=== PATIENT | male | born 1950 | race Caucasian/White ===

== ENCOUNTER → 2019-05-13 | Outpatient (CLI) | payer MEDICARE, OTHER ==
[~2019-05-13] MED LIST: CHOL10002 PO; CLEM1.34 PO; FOLI400 PO; HYOS.125 SL; Multi-Day Vita1 EACH PO; OMEP20ER; OSTEO BI-FLEX1 EAC2 PO; TRIA50 PO; VITAMIN B122500 MCG PO
[2019-05-13 15:11] LABS: PSA, %Free 14.2 %; PSA, Free 0.864 ng/mL
== END ==
LOC: LAB SHORT 13:17 → LAB EV 13:17
PROVIDERS: Urology
DX: R97.20 Elevated prostate specific antigen [PSA] (principal)
CPT/HCPCS: 84153; 84154

== ENCOUNTER 2019-10-06 07:53 | Day surgery (SDC) | payer MEDICARE, OTHER ==
[~2019-10-06] VITALS: Ht 180.3 cm; Wt 87.2 kg
[~2019-10-06 07:53] MED LIST changes: +DYAZIDE 37.5-21 EACH PO; -OMEP20ER; +OMEP20ER PO
[2019-10-06] MEDS ORDERED: ASPI81CH (08:18)
--- NOTE | 2019-10-06 08:38 | NUR ---
10/06/19 0838 Star Hester CALL LIGHT WITHIN REACH.
== END 2019-10-06 10:21 | disposition home or self-care (01) ==
LOC: ORSCSDS 07:53
PROVIDERS: Student in an Organized Health Care Education/Training Program
PROC: 0DBH8ZX Excision of Cecum, Via Natural or Artificial Opening Endoscopic, Diagnostic (ICD-10-PCS; principal; 2019-10-06 09:00)
PROC: 0DBK8ZX Excision of Ascending Colon, Via Natural or Artificial Opening Endoscopic, Diagnostic (ICD-10-PCS; principal; 2019-10-06 09:00)
PROC: 0DBN8ZX Excision of Sigmoid Colon, Via Natural or Artificial Opening Endoscopic, Diagnostic (ICD-10-PCS; principal; 2019-10-06 09:00)
PROC: 0DBL8ZX Excision of Transverse Colon, Via Natural or Artificial Opening Endoscopic, Diagnostic (ICD-10-PCS; principal; 2019-10-06 09:00)
DX: Z12.11 Encounter for screening for malignant neoplasm of colon (principal); D12.2 Benign neoplasm of ascending colon; D12.0 Benign neoplasm of cecum; D12.3 Benign neoplasm of transverse colon; D12.5 Benign neoplasm of sigmoid colon; K64.8 Other hemorrhoids; K21.9 Gastro-esophageal reflux disease without esophagitis; Z79.899 Other long term (current) drug therapy; Z79.82 Long term (current) use of aspirin
CPT/HCPCS: 88305; J2704; J7120

== ENCOUNTER 2020-10-09 12:02 | Day surgery (SDC) | payer MEDICARE, OTHER ==
[~2020-10-09] VITALS: Ht 180.3 cm; Wt 84.6 kg
[~2020-10-09 12:02] MED LIST changes: +ASPI81CH
[2020-10-09] MEDS ORDERED: LOSA25 (12:29)
== END 2020-10-09 14:27 | disposition home or self-care (01) ==
LOC: ORSCSDS 12:02
PROVIDERS: Student in an Organized Health Care Education/Training Program
PROC: 0DBL8ZX Excision of Transverse Colon, Via Natural or Artificial Opening Endoscopic, Diagnostic (ICD-10-PCS; principal; 2020-10-09 13:15)
PROC: 0DBN8ZX Excision of Sigmoid Colon, Via Natural or Artificial Opening Endoscopic, Diagnostic (ICD-10-PCS; principal; 2020-10-09 13:15)
PROC: 0DBM8ZX Excision of Descending Colon, Via Natural or Artificial Opening Endoscopic, Diagnostic (ICD-10-PCS; principal; 2020-10-09 13:15)
DX: Z12.11 Encounter for screening for malignant neoplasm of colon (principal); Z86.010 Personal history of colon polyps; D12.5 Benign neoplasm of sigmoid colon; D12.3 Benign neoplasm of transverse colon; D12.4 Benign neoplasm of descending colon; K64.8 Other hemorrhoids; K21.9 Gastro-esophageal reflux disease without esophagitis; I10 Essential (primary) hypertension; Z79.899 Other long term (current) drug therapy
CPT/HCPCS: 88305; J2704; J7120

== ENCOUNTER 2021-10-10 10:59 | Day surgery (SDC) | payer MEDICARE ==
[~2021-10-10] VITALS: Ht 177.8 cm; Wt 88.1 kg
[~2021-10-10 10:59] MED LIST changes: +ELIQUIS2.5 MG; +LOSA25
[2021-10-10] MEDS ORDERED: ATOR10 (11:35)
== END 2021-10-10 12:45 | disposition home or self-care (01) ==
LOC: ORSCSDS 10:59
PROVIDERS: Student in an Organized Health Care Education/Training Program
PROC: 0DB68ZX Excision of Stomach, Via Natural or Artificial Opening Endoscopic, Diagnostic (ICD-10-PCS; principal; 2021-10-10 12:15)
PROC: 0DB98ZX Excision of Duodenum, Via Natural or Artificial Opening Endoscopic, Diagnostic (ICD-10-PCS; principal; 2021-10-10 12:15)
PROC: 0DB58ZX Excision of Esophagus, Via Natural or Artificial Opening Endoscopic, Diagnostic (ICD-10-PCS; principal; 2021-10-10 12:15)
DX: K21.9 Gastro-esophageal reflux disease without esophagitis (principal); K29.80 Duodenitis without bleeding; K29.70 Gastritis, unspecified, without bleeding; J45.909 Unspecified asthma, uncomplicated; I10 Essential (primary) hypertension; E78.5 Hyperlipidemia, unspecified; Z79.899 Other long term (current) drug therapy
CPT/HCPCS: 88305; 88342; J2704; J7120

== ENCOUNTER 2021-11-15 16:15 | Day surgery (SDC) | payer MEDICARE ==
[~2021-11-15 16:15] MED LIST changes: +ATOR10 PO; -LOSA25; +LOSA25 PO
[2021-11-15] MEDS ORDERED: Flonase 0.05% N16 GM (16:40)
[2021-11-15] MEDS ORDERED: PROBIOTIC1 EA13 PO (17:26)
== END 2021-11-15 17:50 | disposition home or self-care (01) ==
LOC: ATC 16:15
DX: U07.1 COVID-19 (principal); E78.5 Hyperlipidemia, unspecified; I10 Essential (primary) hypertension; Z86.718 Personal history of other venous thrombosis and embolism; Z79.899 Other long term (current) drug therapy
CPT/HCPCS: M0222

== ENCOUNTER → 2023-05-14 | Outpatient (CLI) | payer MEDICARE ==
[~2023-05-14] MED LIST changes: +Flonase 0.05% N16 GM; +PROBIOTIC1 EA13 PO
== END | disposition home or self-care (01) ==
LOC: LAB SHORT 07:50 → LAB 07:50
DX: R10.13 Epigastric pain (principal); R14.0 Abdominal distension (gaseous)
CPT/HCPCS: 87338

== ENCOUNTER 2023-10-07 08:47 | Day surgery (SDC) | payer OTHER ==
[~2023-10-07] VITALS: Ht 177.8 cm; Wt 84.4 kg
[~2023-10-07 08:47] MED LIST changes: +Atropine Sulfate 0.1 MG/ML 10ML SYR ONE; +Glycopyrrolate 0.2 MG/ML 1MLVIAL ONE; +Lactated Ringer's 1,000 ML IV ONE; +Lidocaine 2% 5 ML SDV ONE; +Lidocaine HCl/Pf 1% 5 ML VIAL ONE; +Methylene Blue 1% 100 MG/10 ML VIAL ONE; +Ondansetron HCl 2 MG / ML 2ML Vial ONE; +ePHEDrine Sulfate 50 MG/ML 1ML Injection ONE; +propofoL 50 ML IV ONE
[2023-10-07] MEDS ORDERED: Bentyl10 MG (09:06)
[2023-10-07] MEDS ORDERED: Lactated Ringer's 1,000 ML IV ONE (09:52)
[2023-10-07 11:44] VITALS: BP 118/86
== END 2023-10-07 11:34 | disposition home or self-care (01) ==
LOC: ORSCSDS 08:47
PROVIDERS: Internal Medicine Gastroenterology
PROC: 0DBM8ZX Excision of Descending Colon, Via Natural or Artificial Opening Endoscopic, Diagnostic (ICD-10-PCS; principal; 2023-10-07 10:00)
DX: Z12.11 Encounter for screening for malignant neoplasm of colon (principal); Z86.010 Personal history of colon polyps; D12.4 Benign neoplasm of descending colon; E78.5 Hyperlipidemia, unspecified; I10 Essential (primary) hypertension; K21.9 Gastro-esophageal reflux disease without esophagitis; Z79.899 Other long term (current) drug therapy; J45.909 Unspecified asthma, uncomplicated
CPT/HCPCS: 88305; J0461; J2001; J2405; J2704; J7120; Q9968